=== PATIENT | female | born 1965 | race Caucasian/White ===

== ENCOUNTER → 2016-06-05 | Outpatient (CLI) | payer OTHER | LOC: BRMIMAGING 09:03 | PROVIDERS: ATTEND Physician Assistant | DX: S62.663A Nondisplaced fracture of distal phalanx of left middle finger, initial encounter for closed fracture (principal) | CPT/HCPCS: 73130-PO ==

== ENCOUNTER → 2016-06-19 | Outpatient (CLI) | payer OTHER | LOC: BRMIMAGING 09:18 | DX: S62.633A Displaced fracture of distal phalanx of left middle finger, initial encounter for closed fracture (principal) | CPT/HCPCS: 73140-PO ==